=== PATIENT | male | born 1975 | race African-American/Black ===

== ENCOUNTER → 2017-09-09 | Outpatient (CLI) | payer MEDICARE, MEDICAID ==
[~2017-09-09] MED LIST: ALBU05 NEB; ALBU2.5V13 IH; ASPI-1159 PO; CLON0.1T PO; DILT180C3 PO; DOCU100C21 PO; FLUT1DIS INH; FOLI-43 PO; INSU10VI2 SQ; INSU3INS5 SQ; NEPVIT PO; NIFE-1 PO; PRED5TAB48 PO
== END | disposition home or self-care (01) ==
LOC: US 08:28
PROVIDERS: ATTEND Internal Medicine Nephrology
DX: M79.604 Pain in right leg (principal); M79.605 Pain in left leg; Z86.718 Personal history of other venous thrombosis and embolism
CPT/HCPCS: 93970

== ENCOUNTER 2017-10-17 20:54 | Inpatient (IN) | payer MEDICARE, MEDICAID ==
[~2017-10-17] VITALS: Ht 152.4 cm; Wt 65.8 kg
[2017-10-17 20:30] VITALS: BP 128/57
[2017-10-17 22:00] VITALS: BP 128/57
[2017-10-17] MEDS ORDERED: CLONIDINE 0.1MG TABLET PO PRN (23:56)
[2017-10-17] MEDS ORDERED: DOCUSATE SODIUM 100MG CAPSULE PO PRN (23:56)
[2017-10-18] VITALS: BP 107/73
[2017-10-18] MEDS ORDERED: DEXTROSE 50% WATER 50ML SYRINGE IV PRN
[2017-10-18] MEDS: ACETAMINOPHEN 325MG TABLET PO PRN ×2 (00:34→14:38)
[2017-10-18 01:01] LABS: EOSINOPHILS % 1.8 % (0.0-5.0); HEMATOCRIT. 26.8 % (42.0-52.0); HEMOGLOBIN. 8.4 g/dL (14.0-18.0); LYMPHOCYTES % 19.7 % (20.0-50.0); MEAN CORPUSCULAR HEMOGLOBIN 20.7 pg (28.0-32.0); MEAN CORPUSCULAR VOLUME 66.6 fL (80.0-94.0); MONOCYTES % 8.1 % (2.0-8.0); NEUTROPHILS % 69.4 % (40.0-76.0); PLATELET 481 x1000/uL (130-400); RED BLOOD CELL COUNT 4.03 mill/uL (4.7-6.1); RED CELL DISTRIBUTION WIDTH 20.5 % (11.6-14.6)
[2017-10-18] MEDS ORDERED: VANCOMYCIN 750 MG PREMIX 150 ML IV SCH (03:00)
[2017-10-18 04:00] VITALS: BP 125/74
[2017-10-18] MEDS: IPRATROPIUM/ALBUTEROL 0.5-3(2.5)MG/3ML NEB INH SCH ×4 (05:10→21:03)
[2017-10-18] MEDS: BLOOD SUGAR DIAGNOSTIC STRIP TEST SCH ×4 (06:39→21:20)
[2017-10-18] MEDS ORDERED: OMEP20CA10 PO (06:53)
[2017-10-18] MEDS ORDERED: WARF3TAB58 PO (06:53)
[2017-10-18] MEDS ORDERED: CLON0.1T PO (06:55)
[2017-10-18] MEDS ORDERED: INSNOV SUBCUT (06:55)
[2017-10-18] MEDS ORDERED: INSU300I SQ (06:57)
[2017-10-18] MEDS ORDERED: ASPI-1159 PO (06:57)
[2017-10-18] MEDS ORDERED: FLUT1DIS2 IH (06:58)
[2017-10-18] MEDS ORDERED: MEDICATION NOT ON FORMULARY EA (Fluticasone/Salmeterol (Advair Diskus) 1 PUFF) INH SCH (07:00)
[2017-10-18 07:35] LABS: HEMATOCRIT. 26.4 % (42.0-52.0); HEMOGLOBIN. 8.2 g/dL (14.0-18.0); MEAN CORPUSCULAR HEMOGLOBIN 20.5 pg (28.0-32.0); MEAN CORPUSCULAR VOLUME 65.7 fL (80.0-94.0); MEAN PLATELET VOLUME 6.7 fl (7.4-10.4); PLATELET 699 x1000/uL (130-400); RED BLOOD CELL COUNT 4.02 mill/uL (4.7-6.1); RED CELL DISTRIBUTION WIDTH 20.9 % (11.6-14.6)
[2017-10-18 07:44] LABS: CHLORIDE 95 mEq/L (98-107)
[2017-10-18] MEDS: INSULIN LISPRO 100 UNITS/ML SUBCUT SCH ×4 (07:50→21:00)
[2017-10-18 08:00] VITALS: BP 143/68
[2017-10-18] MEDS ORDERED: LEVOFLOXACIN 250MG PREMIX 50 ML IV SCH (08:45)
[2017-10-18] MEDS: DOCUSATE SODIUM 100MG CAPSULE PO SCH (08:50)
[2017-10-18] MEDS: OMEPRAZOLE 20MG CAPSULE EXTENDED RELEASE PO SCH (08:50)
[2017-10-18] MEDS: FOLIC ACID 1MG TABLET PO SCH (08:50)
[2017-10-18] MEDS: DILTIAZEM HCL 180MG CAPSULE CD 24HR PO SCH (08:51)
[2017-10-18] MEDS ORDERED: ALBUTEROL (0.083%) 2.5MG/3ML NEB HHN SCH (09:00)
[2017-10-18] MEDS: FOLIC ACID/VITAMIN B COMP W-C TABLET PO SCH (09:49)
[2017-10-18 10:51] LABS: PLATELET ESTIMATE INCREASED
[2017-10-18] MEDS: CHLORHEXIDINE GLUCONATE 4% EXTERNAL USE TOP SCH ×2 (11:00→17:00)
[2017-10-18] MEDS ORDERED: LEVOFLOXACIN 500MG PREMIX 100 ML IV SCH (11:00)
[2017-10-18 12:00] VITALS: BP 139/61
[2017-10-18] MEDS ORDERED: VANCOMYCIN 750 MG PREMIX 150 ML IV NR (12:00)
[2017-10-18] MEDS: CLONIDINE 0.1MG TABLET PO SCH ×2 (13:08→21:27)
[2017-10-18 16:00] VITALS: BP 141/74
[2017-10-18] MEDS ORDERED: HEPARIN SODIUM 1,000 UNIT/1ML VIAL IV NR (16:23)
[2017-10-18 20:00] VITALS: BP 131/76
[2017-10-18] MEDS ORDERED: EPOETIN ALFA 10000UNITS/ML VIAL SUBCUT SCH (21:00)
[2017-10-18] MEDS: BUDESONIDE 0.5MG/2ML NEB HHN SCH (21:03)
[2017-10-18] MEDS: MORPHINE SULFATE 4 MG/ML CPJ (NOT FOR IM USE) IV PRN (23:31)
[2017-10-19] VITALS: BP 146/82
[2017-10-19] MEDS: IPRATROPIUM/ALBUTEROL 0.5-3(2.5)MG/3ML NEB INH SCH ×4 (01:28→21:16)
[2017-10-19 01:40] LABS: PLATELET ESTIMATE INCREASED
[2017-10-19 04:00] VITALS: BP 132/81
[2017-10-19 05:55] LABS: HEMATOCRIT. 25.1 % (42.0-52.0); HEMOGLOBIN. 8.1 g/dL (14.0-18.0); MEAN CORPUSCULAR HEMOGLOBIN 20.8 pg (28.0-32.0); MEAN CORPUSCULAR VOLUME 64.9 fL (80.0-94.0); MEAN PLATELET VOLUME 6.7 fl (7.4-10.4); PLATELET 683 x1000/uL (130-400); RED BLOOD CELL COUNT 3.87 mill/uL (4.7-6.1); RED CELL DISTRIBUTION WIDTH 20.7 % (11.6-14.6)
[2017-10-19 06:26] LABS: PLATELET ESTIMATE INCREASED
[2017-10-19] MEDS: CLONIDINE 0.1MG TABLET PO SCH ×3 (06:32→21:59)
[2017-10-19] MEDS: OMEPRAZOLE 20MG CAPSULE EXTENDED RELEASE PO SCH (06:32)
[2017-10-19] MEDS: BLOOD SUGAR DIAGNOSTIC STRIP TEST SCH ×4 (06:37→20:48)
[2017-10-19 07:22] LABS: PHOSPHORUS 3.7 mg/dL (2.5-4.9)
[2017-10-19] MEDS: INSULIN LISPRO 100 UNITS/ML SUBCUT SCH ×4 (07:50→20:49)
[2017-10-19 08:00] VITALS: BP 142/66
[2017-10-19] MEDS: FOLIC ACID 1MG TABLET PO SCH (08:03)
[2017-10-19] MEDS: FOLIC ACID/VITAMIN B COMP W-C TABLET PO SCH (08:03)
[2017-10-19] MEDS: DOCUSATE SODIUM 100MG CAPSULE PO SCH (08:03)
[2017-10-19] MEDS: BUDESONIDE 0.5MG/2ML NEB HHN SCH ×2 (08:16→21:16)
[2017-10-19] MEDS: DILTIAZEM HCL 180MG CAPSULE CD 24HR PO SCH (08:52)
[2017-10-19] MEDS ORDERED: PROMETHAZINE/DEXTROMETHORPHAN 6.25-15MG/5ML BOTTLE 120ML PO PRN (09:00)
[2017-10-19] MEDS ORDERED: IPRATROPIUM/ALBUTEROL 0.5-3(2.5)MG/3ML NEB HHN PRN (11:45)
[2017-10-19 12:00] VITALS: BP 137/81
[2017-10-19] MEDS: CHLORHEXIDINE GLUCONATE 4% EXTERNAL USE TOP SCH ×2 (13:53→17:02)
[2017-10-19] MEDS: MORPHINE SULFATE 4 MG/ML CPJ (NOT FOR IM USE) IV PRN (14:38)
[2017-10-19 16:00] VITALS: BP 121/71
[2017-10-19 20:38] VITALS: BP 121/63
[2017-10-20] VITALS (9 sets, daily range): BP systolic 109–151; BP diastolic 56–81
[2017-10-20] MEDS: MORPHINE SULFATE 4 MG/ML CPJ (NOT FOR IM USE) IV PRN ×3 (02:35→22:47)
[2017-10-20] MEDS: IPRATROPIUM/ALBUTEROL 0.5-3(2.5)MG/3ML NEB INH SCH ×4 (02:36→20:16)
[2017-10-20] MEDS: OMEPRAZOLE 20MG CAPSULE EXTENDED RELEASE PO SCH (06:07)
[2017-10-20] MEDS: CLONIDINE 0.1MG TABLET PO SCH ×3 (06:08→22:23)
[2017-10-20 06:24] LABS: HEMATOCRIT. 23.7 % (42.0-52.0); HEMOGLOBIN. 7.4 g/dL (14.0-18.0); MEAN CORPUSCULAR HEMOGLOBIN 20.5 pg (28.0-32.0); MEAN CORPUSCULAR VOLUME 65.2 fL (80.0-94.0); MEAN PLATELET VOLUME 6.7 fl (7.4-10.4); PLATELET 640 x1000/uL (130-400); RED BLOOD CELL COUNT 3.64 mill/uL (4.7-6.1); RED CELL DISTRIBUTION WIDTH 20.6 % (11.6-14.6)
[2017-10-20] MEDS: BLOOD SUGAR DIAGNOSTIC STRIP TEST SCH ×4 (06:28→22:19)
[2017-10-20 06:58] LABS: PLATELET ESTIMATE INCREASED
[2017-10-20] MEDS: INSULIN LISPRO 100 UNITS/ML SUBCUT SCH ×4 (07:16→21:00)
[2017-10-20] MEDS: FOLIC ACID/VITAMIN B COMP W-C TABLET PO SCH (08:29)
[2017-10-20] MEDS: DOCUSATE SODIUM 100MG CAPSULE PO SCH (08:29)
[2017-10-20] MEDS: ZINC SULFATE 220 MG ( 50 ) CAPSULE PO SCH (08:30)
[2017-10-20] MEDS: CHLORHEXIDINE GLUCONATE 4% EXTERNAL USE TOP SCH ×2 (08:31→17:59)
[2017-10-20] MEDS: DILTIAZEM HCL 180MG CAPSULE CD 24HR PO SCH (08:38)
[2017-10-20] MEDS: ASCORBIC ACID 250 MG TABLET PO SCH ×2 (08:38→18:00)
[2017-10-20] MEDS: FOLIC ACID 1MG TABLET PO SCH (08:39)
[2017-10-20] MEDS: ONDANSETRON HCL 4MG/2ML VIAL IV PRN ×2 (09:41→22:37)
[2017-10-20] MEDS: BUDESONIDE 0.5MG/2ML NEB HHN SCH ×3 (10:00→20:16)
[2017-10-20] MEDS ORDERED: LEVOFLOXACIN 250MG PREMIX 50 ML IV SCH (11:00)
[2017-10-20] MEDS ORDERED: VANCOMYCIN 750 MG PREMIX 150 ML IV NR (22:00)
[2017-10-20] MEDS ORDERED: EPOETIN ALFA 10000UNITS/ML VIAL SUBCUT SCH (22:00)
[2017-10-21] VITALS: BP 105/59
[2017-10-21] MEDS: IPRATROPIUM/ALBUTEROL 0.5-3(2.5)MG/3ML NEB INH SCH (02:34)
[2017-10-21 04:00] VITALS: BP 123/74
[2017-10-21 06:15] LABS: HEMATOCRIT. 27.5 % (42.0-52.0); HEMOGLOBIN. 8.9 g/dL (14.0-18.0); MEAN CORPUSCULAR HEMOGLOBIN 21.7 pg (28.0-32.0); MEAN PLATELET VOLUME 6.7 fl (7.4-10.4); PLATELET 571 x1000/uL (130-400); RED CELL DISTRIBUTION WIDTH 20.9 % (11.6-14.6)
[2017-10-21] MEDS: CLONIDINE 0.1MG TABLET PO SCH (07:11)
[2017-10-21] MEDS: OMEPRAZOLE 20MG CAPSULE EXTENDED RELEASE PO SCH (07:11)
[2017-10-21] MEDS: BLOOD SUGAR DIAGNOSTIC STRIP TEST SCH ×2 (07:13→13:01)
[2017-10-21] MEDS: INSULIN LISPRO 100 UNITS/ML SUBCUT SCH ×2 (07:50→12:50)
[2017-10-21 08:00] VITALS: BP 119/70
[2017-10-21] MEDS: FOLIC ACID 1MG TABLET PO SCH (09:55)
[2017-10-21] MEDS: ASCORBIC ACID 250 MG TABLET PO SCH (09:55)
[2017-10-21] MEDS: FOLIC ACID/VITAMIN B COMP W-C TABLET PO SCH (09:55)
[2017-10-21] MEDS: ZINC SULFATE 220 MG ( 50 ) CAPSULE PO SCH (09:55)
[2017-10-21] MEDS: DILTIAZEM HCL 180MG CAPSULE CD 24HR PO SCH (09:56)
[2017-10-21] MEDS: DOCUSATE SODIUM 100MG CAPSULE PO SCH (09:57)
[2017-10-21] MEDS: CHLORHEXIDINE GLUCONATE 4% EXTERNAL USE TOP SCH (09:58)
[2017-10-21 10:05] LABS: PLATELET ESTIMATE INCREASED
[2017-10-21 11:45] VITALS: BP 119/70
[2017-10-21 12:00] VITALS: BP 133/79
== END 2017-10-21 13:50 | disposition home or self-care (01) | DRG 871 ==
LOC: 6EST 20:54
PROVIDERS: ADMIT Internal Medicine Nephrology; ATTEND Internal Medicine Nephrology
PROC: 5A1D70Z Performance of Urinary Filtration, Intermittent, Less than 6 Hours Per Day (ICD-10-PCS; principal; 2017-10-18)
PROC: 5A1D70Z Performance of Urinary Filtration, Intermittent, Less than 6 Hours Per Day (ICD-10-PCS; 2017-10-19)
PROC: 5A1D70Z Performance of Urinary Filtration, Intermittent, Less than 6 Hours Per Day (ICD-10-PCS; 2017-10-20)
PROC: 30233N1 Transfusion of Nonautologous Red Blood Cells into Peripheral Vein, Percutaneous Approach (ICD-10-PCS; 2017-10-20)
DX: A41.9 Sepsis, unspecified organism (principal); J96.00 Acute respiratory failure, unspecified whether with hypoxia or hypercapnia; J84.9 Interstitial pulmonary disease, unspecified; J90 Pleural effusion, not elsewhere classified; T86.11 Kidney transplant rejection; J18.9 Pneumonia, unspecified organism; N18.6 End stage renal disease; I13.11 Hypertensive heart and chronic kidney disease without heart failure, with stage 5 chronic kidney disease, or end stage renal disease; L02.411 Cutaneous abscess of right axilla; L03.90 Cellulitis, unspecified; Z94.0 Kidney transplant status; D64.9 Anemia, unspecified; E11.22 Type 2 diabetes mellitus with diabetic chronic kidney disease; G40.909 Epilepsy, unspecified, not intractable, without status epilepticus; E87.70 Fluid overload, unspecified; Z99.2 Dependence on renal dialysis; L73.2 Hidradenitis suppurativa; Z79.82 Long term (current) use of aspirin; Z79.4 Long term (current) use of insulin; Z79.899 Other long term (current) drug therapy
CPT/HCPCS: 36415; 71045; 80048; 80202; 82962; 83735; 84100; 84484; 85025; 86850; 86870; 86900; 86920; 87040; 87070; 87205; 93005; 93306; 93970; 94640; 97116; 97162; 97166; 97530; C1893; J0885; J1644; J1815; J1956; J2270; J2405; J3370; J7030; J7040; J7050; J7620; J7626; P9016

== ENCOUNTER 2017-11-01 15:38 | Inpatient (IN) | payer MEDICARE, MEDICAID ==
[~2017-11-01] VITALS: Ht 134.6 cm; Wt 61.2 kg
[~2017-11-01 15:38] MED LIST changes: -CLON0.1T PO; +FLUT1DIS2 IH; +INSNOV SUBCUT; +INSU300I SQ; +OMEP20CA10 PO
[2017-11-01] MEDS ORDERED: DOCUSATE SODIUM 100MG CAPSULE PO PRN (16:15)
[2017-11-01] MEDS ORDERED: ONDANSETRON HCL 4MG/2ML VIAL IV PRN (16:15)
[2017-11-01 17:00] VITALS: BP 119/63
[2017-11-01 20:00] VITALS: BP 99/54
[2017-11-01 20:07] LABS: BASOPHILS % 0.9 % (0.0-2.0); EOSINOPHILS % 0.5 % (0.0-5.0); HEMATOCRIT. 26.3 % (42.0-52.0); HEMOGLOBIN. 8.6 g/dL (14.0-18.0); LYMPHOCYTES % 15.4 % (20.0-50.0); MEAN CORPUSCULAR HEMOGLOBIN 21.2 pg (28.0-32.0); MEAN PLATELET VOLUME 6.6 fl (7.4-10.4); MONOCYTES % 9.9 % (2.0-8.0); NEUTROPHILS % 73.3 % (40.0-76.0); PLATELET 566 x1000/uL (130-400); RED BLOOD CELL COUNT 4.05 mill/uL (4.7-6.1); RED CELL DISTRIBUTION WIDTH 23.7 % (11.6-14.6)
[2017-11-01 20:11] LABS: INR 1.4; PROTHROMBIN TIME 14.9 sec (9.4-11.6)
[2017-11-01] MEDS ORDERED: DEXTROSE 50% WATER 50ML SYRINGE IV PRN (20:15)
[2017-11-01] MEDS: ACETAMINOPHEN 325MG TABLET PO PRN (20:19)
[2017-11-01 20:20] LABS: PHOSPHORUS 1.5 mg/dL (2.5-4.9); PLATELET ESTIMATE INCREASED
[2017-11-01] MEDS: BLOOD SUGAR DIAGNOSTIC STRIP TEST SCH (20:32)
[2017-11-01 20:52] VITALS: BP 99/54
[2017-11-01] MEDS: INSULIN LISPRO 100 UNITS/ML SUBCUT SCH (21:29)
[2017-11-01] MEDS: LEVOFLOXACIN 250MG PREMIX 50 ML IV SCH (22:43)
[2017-11-02] VITALS (7 sets, daily range): BP systolic 122–149; BP diastolic 55–81
[2017-11-02] MEDS ORDERED: FLUT1DIS2 IH (00:06)
[2017-11-02] MEDS ORDERED: ASCO-339 PO (00:07)
[2017-11-02] MEDS ORDERED: ALBU2.5V13 IH (00:11)
[2017-11-02] MEDS ORDERED: FOLI0.8T23 PO (00:11)
[2017-11-02] MEDS ORDERED: OMEP20CA10 PO (00:11)
[2017-11-02] MEDS ORDERED: ZINC50TA62 PO (00:11)
[2017-11-02] MEDS ORDERED: FOLI-43 PO (00:11)
[2017-11-02] MEDS ORDERED: DILT180C3 PO (00:11)
[2017-11-02] MEDS ORDERED: NIFE-1 PO (00:11)
[2017-11-02] MEDS ORDERED: INSU300I SQ (00:12)
[2017-11-02] MEDS ORDERED: ASPI-1079 PO (00:12)
[2017-11-02 02:20] LABS: HEMATOCRIT 26.3 % (42.0-52.0); HEMOGLOBIN 8.2 g/dL (14.0-18.0)
[2017-11-02] MEDS: MORPHINE SULFATE 4 MG/ML CPJ (NOT FOR IM USE) IV PRN (03:01)
[2017-11-02] MEDS: BLOOD SUGAR DIAGNOSTIC STRIP TEST SCH ×5 (06:39→21:00)
[2017-11-02] MEDS: INSULIN LISPRO 100 UNITS/ML SUBCUT SCH ×5 (07:50→21:00)
[2017-11-02] MEDS: FOLIC ACID/VITAMIN B COMP W-C TABLET PO SCH (08:08)
[2017-11-02] MEDS: CALCIUM ACETATE 667MG CAPSULE PO SCH ×4 (08:08→17:59)
[2017-11-02] MEDS: PANTOPRAZOLE SODIUM 40 MG/VIAL IV SCH (08:09)
[2017-11-02] MEDS: FOLIC ACID 1MG TABLET PO SCH (08:09)
[2017-11-02] MEDS: DILTIAZEM HCL 180MG CAPSULE CD 24HR PO SCH (08:09)
[2017-11-02] MEDS ORDERED: NIFEDIPINE XL 30MG TAB PO SCH (09:00)
[2017-11-02] MEDS ORDERED: LACTULOSE 20G/30ML UDC PO SCH (09:15)
[2017-11-02 10:22] LABS: HEMATOCRIT. 27.5 % (42.0-52.0); HEMOGLOBIN. 8.6 g/dL (14.0-18.0); INR 1.4; MEAN CORPUSCULAR HEMOGLOBIN 20.5 pg (28.0-32.0); MEAN CORPUSCULAR VOLUME 65.2 fL (80.0-94.0); MEAN PLATELET VOLUME 6.7 fl (7.4-10.4); PLATELET 531 x1000/uL (130-400); PROTHROMBIN TIME 15.1 sec (9.4-11.6); RED BLOOD CELL COUNT 4.22 mill/uL (4.7-6.1); RED CELL DISTRIBUTION WIDTH 23.5 % (11.6-14.6)
[2017-11-02 10:23] LABS: CHLORIDE 92 mEq/L (98-107)
[2017-11-02 10:36] LABS: LDL CHOLESTEROL 73 mg/dL (5-100)
[2017-11-02 10:37] LABS: HDL CHOLESTEROL 73 mg/dL (40-59)
[2017-11-02 15:49] LABS: HEMATOCRIT 27.5 % (42.0-52.0); HEMOGLOBIN 8.6 g/dL (14.0-18.0)
[2017-11-02 17:09] LABS: PLATELET ESTIMATE INCREASED
[2017-11-02 22:01] LABS: HEMATOCRIT 25.8 % (42.0-52.0); HEMOGLOBIN 8.4 g/dL (14.0-18.0)
[2017-11-02] MEDS: LEVOFLOXACIN 250MG PREMIX 50 ML IV SCH (22:24)
[2017-11-03] VITALS: BP 105/51
[2017-11-03 04:00] VITALS: BP 112/50
[2017-11-03] MEDS: INSULIN LISPRO 100 UNITS/ML SUBCUT SCH ×4 (06:20→22:11)
[2017-11-03] MEDS: BLOOD SUGAR DIAGNOSTIC STRIP TEST SCH ×4 (06:20→20:53)
[2017-11-03 07:40] LABS: HEMATOCRIT. 24.4 % (42.0-52.0); HEMOGLOBIN. 7.7 g/dL (14.0-18.0); MEAN CORPUSCULAR HEMOGLOBIN 20.6 pg (28.0-32.0); MEAN CORPUSCULAR VOLUME 64.9 fL (80.0-94.0); MEAN PLATELET VOLUME 6.5 fl (7.4-10.4); PLATELET 534 x1000/uL (130-400); RED BLOOD CELL COUNT 3.76 mill/uL (4.7-6.1); RED CELL DISTRIBUTION WIDTH 22.9 % (11.6-14.6)
[2017-11-03 08:00] VITALS: BP 120/65
[2017-11-03] MEDS: DILTIAZEM HCL 180MG CAPSULE CD 24HR PO SCH (09:00)
[2017-11-03] MEDS: FOLIC ACID 1MG TABLET PO SCH (10:39)
[2017-11-03] MEDS: CALCIUM ACETATE 667MG CAPSULE PO SCH ×3 (10:39→19:06)
[2017-11-03] MEDS: PANTOPRAZOLE SODIUM 40 MG/VIAL IV SCH (10:39)
[2017-11-03] MEDS: FOLIC ACID/VITAMIN B COMP W-C TABLET PO SCH (10:39)
[2017-11-03] MEDS ORDERED: DIATR MEGLU/DIATRIZOATE SOLN 30ML PO SCH (11:30)
[2017-11-03 11:52] LABS: BG CARBOXYHEMOGLOBIN 0.7 % (0.5-1.5); BG DEOXYHEMOGLOBIN 8.9 % (0.0-5.0); BG HCO3 ACT 30.2 mmol/L (22.0-26.0); BG METHEMOGLOBIN 0.2 % (0.0-1.5); BG OXYHEMOGLOBIN 90.2 % (94.0-97.0); BG PCO2 42.3 mmHg (35.0-45.0); BG PH 7.472 (7.350-7.450); BG PO2 58.8 mmHg (75.0-100.0); BG SAMPLE SITE RIGHT RADIAL; BG VENT MODE ROOM AIR
[2017-11-03 12:00] VITALS: BP 136/74
[2017-11-03] MEDS ORDERED: LIDOCAINE HCL/PF 1% 2ML VIAL ONE (13:14)
[2017-11-03 16:00] VITALS: BP 130/58
[2017-11-03 16:15] LABS: PLATELET ESTIMATE INCREASED
[2017-11-03 16:23] LABS: HEMATOCRIT 27.3 % (42.0-52.0); HEMOGLOBIN 8.4 g/dL (14.0-18.0)
[2017-11-03] MEDS ORDERED: BISACODYL 5MG TABLET PO NR (16:45)
[2017-11-03] MEDS: VANCOMYCIN 1250MG in DEXTROSE 5% WATER 250ML IV NR ×2 (17:00→22:09)
[2017-11-03] MEDS: ACETAMINOPHEN 325MG TABLET PO PRN (18:10)
[2017-11-03] MEDS: CHLORHEXIDINE GLUCONATE 4% EXTERNAL USE TOP SCH (19:06)
[2017-11-03] MEDS ORDERED: *TOBRAMYCIN PER PHARMACY XX SCH (19:30)
[2017-11-03] MEDS ORDERED: IOHEXOL-300 100 ML BOTTLE ONE (19:41)
[2017-11-03 20:00] VITALS: BP 107/63
[2017-11-03] MEDS ORDERED: TOBRAMYCIN SULFATE IV NR (22:00)
[2017-11-03] MEDS ORDERED: SODIUM CHLORIDE 0.9% IV NR (22:00)
[2017-11-03] MEDS: EPOETIN ALFA 10000UNITS/ML VIAL SUBCUT SCH (22:09)
[2017-11-04] VITALS: BP 150/67
[2017-11-04] MEDS: MORPHINE SULFATE 4 MG/ML CPJ (NOT FOR IM USE) IV PRN (03:04)
[2017-11-04 04:00] VITALS: BP 125/79
[2017-11-04] MEDS: BLOOD SUGAR DIAGNOSTIC STRIP TEST SCH ×4 (05:53→21:02)
[2017-11-04] MEDS: CHLORHEXIDINE GLUCONATE 4% EXTERNAL USE TOP SCH ×2 (05:53→18:54)
[2017-11-04] MEDS: INSULIN LISPRO 100 UNITS/ML SUBCUT SCH ×4 (05:57→21:54)
[2017-11-04 07:08] LABS: BASOPHILS % 0.9 % (0.0-2.0); EOSINOPHILS % 1.3 % (0.0-5.0); HEMATOCRIT. 28.6 % (42.0-52.0); HEMOGLOBIN. 8.9 g/dL (14.0-18.0); LYMPHOCYTES % 16.4 % (20.0-50.0); MEAN CORPUSCULAR HEMOGLOBIN 20.5 pg (28.0-32.0); MEAN PLATELET VOLUME 6.7 fl (7.4-10.4); MONOCYTES % 11.2 % (2.0-8.0); NEUTROPHILS % 70.2 % (40.0-76.0); PLATELET 537 x1000/uL (130-400); RED BLOOD CELL COUNT 4.33 mill/uL (4.7-6.1); RED CELL DISTRIBUTION WIDTH 23.7 % (11.6-14.6)
[2017-11-04 08:00] VITALS: BP 145/80
[2017-11-04] MEDS: FOLIC ACID/VITAMIN B COMP W-C TABLET PO SCH (09:37)
[2017-11-04] MEDS: CALCIUM ACETATE 667MG CAPSULE PO SCH ×3 (09:37→19:30)
[2017-11-04] MEDS: LEVOFLOXACIN 250MG PREMIX 50 ML IV SCH (09:37)
[2017-11-04] MEDS: PANTOPRAZOLE SODIUM 40 MG/VIAL IV SCH (09:37)
[2017-11-04] MEDS: FOLIC ACID 1MG TABLET PO SCH (09:37)
[2017-11-04] MEDS: DILTIAZEM HCL 180MG CAPSULE CD 24HR PO SCH (09:39)
[2017-11-04 12:00] VITALS: BP 145/74
[2017-11-04] MEDS: METHYLPREDNISOLONE SOD SUCC 125 MG/2 ML VIAL IV SCH ×3 (12:41→23:30)
[2017-11-04 16:00] VITALS: BP 155/86
[2017-11-04 20:00] VITALS: BP 155/80
[2017-11-04] MEDS ORDERED: INSULIN GLARGINE UD 100 UNITS/ML SYR SUBCUT SCH (22:00)
[2017-11-05] VITALS: BP 157/76
[2017-11-05 04:00] VITALS: BP 149/90
[2017-11-05] MEDS: CHLORHEXIDINE GLUCONATE 4% EXTERNAL USE TOP SCH ×2 (05:56→18:56)
[2017-11-05] MEDS: BLOOD SUGAR DIAGNOSTIC STRIP TEST SCH ×4 (05:56→21:44)
[2017-11-05] MEDS: METHYLPREDNISOLONE SOD SUCC 125 MG/2 ML VIAL IV SCH ×3 (05:56→18:57)
[2017-11-05 08:00] VITALS: BP 155/77
[2017-11-05] MEDS: INSULIN LISPRO 100 UNITS/ML SUBCUT SCH ×4 (08:58→21:42)
[2017-11-05] MEDS: CALCIUM ACETATE 667MG CAPSULE PO SCH ×3 (09:00→18:57)
[2017-11-05] MEDS: FOLIC ACID 1MG TABLET PO SCH (09:00)
[2017-11-05] MEDS: PANTOPRAZOLE SODIUM 40 MG/VIAL IV SCH (09:00)
[2017-11-05] MEDS: FOLIC ACID/VITAMIN B COMP W-C TABLET PO SCH (09:00)
[2017-11-05] MEDS: DILTIAZEM HCL 180MG CAPSULE CD 24HR PO SCH (09:00)
[2017-11-05] MEDS: MORPHINE SULFATE 4 MG/ML CPJ (NOT FOR IM USE) IV PRN (10:10)
[2017-11-05 12:00] VITALS: BP 156/77
[2017-11-05 12:53] LABS: HEMATOCRIT. 28.7 % (42.0-52.0); HEMOGLOBIN. 9.2 g/dL (14.0-18.0); MEAN CORPUSCULAR HEMOGLOBIN 21.1 pg (28.0-32.0); MEAN CORPUSCULAR VOLUME 65.8 fL (80.0-94.0); MEAN PLATELET VOLUME 6.4 fl (7.4-10.4); PLATELET 575 x1000/uL (130-400); RED BLOOD CELL COUNT 4.36 mill/uL (4.7-6.1); RED CELL DISTRIBUTION WIDTH 23.9 % (11.6-14.6)
[2017-11-05 13:23] LABS: PLATELET ESTIMATE INCREASED
[2017-11-05 13:32] LABS: TOBRAMYCIN RANDOM 2.8 ucg/mL
[2017-11-05 16:00] VITALS: BP 172/86
[2017-11-05] MEDS ORDERED: VANCOMYCIN 1 G PREMIX 200 ML IV SCH (18:00)
[2017-11-05 20:00] VITALS: BP 152/76
[2017-11-05] MEDS: EPOETIN ALFA 10000UNITS/ML VIAL SUBCUT SCH (21:43)
[2017-11-05] MEDS ORDERED: INSULIN GLARGINE UD 100 UNITS/ML SYR SUBCUT SCH (22:00)
[2017-11-06] VITALS (7 sets, daily range): BP systolic 124–151; BP diastolic 55–92
[2017-11-06] MEDS: METHYLPREDNISOLONE SOD SUCC 125 MG/2 ML VIAL IV SCH ×4 (04:18→17:05)
[2017-11-06] MEDS: CHLORHEXIDINE GLUCONATE 4% EXTERNAL USE TOP SCH ×2 (05:35→17:20)
[2017-11-06] MEDS: BLOOD SUGAR DIAGNOSTIC STRIP TEST SCH ×3 (05:50→17:20)
[2017-11-06] MEDS ORDERED: NIFEDIPINE XL 30MG TAB PO SCH (09:00)
[2017-11-06 09:12] LABS: HEMOGLOBIN. 9.6 g/dL (14.0-18.0); MEAN CORPUSCULAR HEMOGLOBIN 20.8 pg (28.0-32.0); MEAN CORPUSCULAR VOLUME 64.9 fL (80.0-94.0); MEAN PLATELET VOLUME 8.3 fl (7.4-10.4); PLATELET 547 x1000/uL (130-400); RED BLOOD CELL COUNT 4.62 mill/uL (4.7-6.1); RED CELL DISTRIBUTION WIDTH 23.9 % (11.6-14.6)
[2017-11-06 09:34] LABS: T4 FREE 0.95 ng/dL (0.76-1.46)
[2017-11-06 09:36] LABS: PREALBUMIN 12.3 mg/dL (20.0-40.0)
[2017-11-06] MEDS: INSULIN LISPRO 100 UNITS/ML SUBCUT SCH ×4 (09:38→18:05)
[2017-11-06] MEDS: FOLIC ACID 1MG TABLET PO SCH (09:40)
[2017-11-06] MEDS: PANTOPRAZOLE SODIUM 40 MG/VIAL IV SCH (09:40)
[2017-11-06] MEDS: FOLIC ACID/VITAMIN B COMP W-C TABLET PO SCH (09:40)
[2017-11-06] MEDS: LEVOFLOXACIN 250MG PREMIX 50 ML IV SCH (09:40)
[2017-11-06] MEDS: CALCIUM ACETATE 667MG CAPSULE PO SCH ×3 (09:40→17:55)
[2017-11-06] MEDS ORDERED: INSULIN LISPRO 100 UNITS/ML SUBCUT SCH (12:40)
[2017-11-06] MEDS: INSULIN LISPRO (LOW DOSE) 100 UNITS/ML SUBCUT SCH ×2 (13:50→18:06)
[2017-11-06 14:10] LABS: NUCLEATED RED BLOOD CELLS 2 /100 WBC
[2017-11-06 14:11] LABS: PLATELET ESTIMATE INCREASED
== END 2017-11-06 21:55 | disposition short-term general hospital (02) | DRG 698 ==
LOC: 6EST 15:38 → 7WST 11-02 12:20
PROVIDERS: ADMIT Internal Medicine Nephrology; ATTEND Internal Medicine Nephrology
PROC: 5A1D70Z Performance of Urinary Filtration, Intermittent, Less than 6 Hours Per Day (ICD-10-PCS; principal; 2017-11-03)
PROC: 5A1D70Z Performance of Urinary Filtration, Intermittent, Less than 6 Hours Per Day (ICD-10-PCS; 2017-11-05)
DX: T86.11 Kidney transplant rejection (principal); J18.9 Pneumonia, unspecified organism; E46 Unspecified protein-calorie malnutrition; E11.22 Type 2 diabetes mellitus with diabetic chronic kidney disease; J90 Pleural effusion, not elsewhere classified; N18.6 End stage renal disease; L02.419 Cutaneous abscess of limb, unspecified; E87.1 Hypo-osmolality and hyponatremia; I13.11 Hypertensive heart and chronic kidney disease without heart failure, with stage 5 chronic kidney disease, or end stage renal disease; E11.40 Type 2 diabetes mellitus with diabetic neuropathy, unspecified; E66.9 Obesity, unspecified; E83.52 Hypercalcemia; G40.909 Epilepsy, unspecified, not intractable, without status epilepticus; D72.829 Elevated white blood cell count, unspecified; K59.00 Constipation, unspecified; D63.1 Anemia in chronic kidney disease; L73.2 Hidradenitis suppurativa; K80.20 Calculus of gallbladder without cholecystitis without obstruction; R59.0 Localized enlarged lymph nodes; Z99.2 Dependence on renal dialysis; Z94.0 Kidney transplant status; Z83.3 Family history of diabetes mellitus; Z82.49 Family history of ischemic heart disease and other diseases of the circulatory system; Z79.4 Long term (current) use of insulin; Z90.5 Acquired absence of kidney; Z88.8 Allergy status to other drugs, medicaments and biological substances; Z68.33 Body mass index [BMI] 33.0-33.9, adult; G47.30 Sleep apnea, unspecified; R09.02 Hypoxemia; J45.909 Unspecified asthma, uncomplicated
CPT/HCPCS: 36415; 36600; 71045; 74176; 74177; 80048; 80053; 80061; 80200; 80202; 82330; 82375; 82805; 82962; 83036; 83540; 83550; 83690; 83735; 83970; 84100; 84134; 84439; 84443; 85014; 85018; 85025; 85610; 85651; 86141; 87040; 93005; 93970; C1893; C9113; J0885; J1815; J1956; J2270; J2405; J2930; J3260; J3370; J3490; J7030; J7040; J7050; J7060; Q9967

== ENCOUNTER 2018-04-22 07:46 | Emergency (ER) | payer MEDICARE, MEDICAID ==
[~2018-04-22] VITALS: Ht 167.6 cm; Wt 65.0 kg
[~2018-04-22 07:46] MED LIST changes: -ALBU05 NEB; +ASCO-339 PO; +ASPI-1079 PO; -ASPI-1159 PO; -DOCU100C21 PO; -FLUT1DIS INH; +FOLI0.8T23 PO; -INSNOV SUBCUT; -INSU10VI2 SQ; -INSU3INS5 SQ; -NEPVIT PO; -PRED5TAB48 PO; +ZINC50TA62 PO
[2018-04-22] MEDS ORDERED: ONDANSETRON HCL 4MG/2ML INJ IV STA (08:10)
[2018-04-22] MEDS ORDERED: MORPHINE SULFATE 4 MG/ML CPJ (NOT FOR IM USE) IV STA (08:10)
[2018-04-22 09:35] LABS: HEMATOCRIT. 40.1 % (42.0-52.0); HEMOGLOBIN. 13.1 g/dL (14.0-18.0); MEAN CORPUSCULAR HEMOGLOBIN 25.3 pg (28.0-32.0); MEAN CORPUSCULAR VOLUME 77.4 fL (80.0-94.0); MEAN PLATELET VOLUME 7.4 fl (7.4-10.4); PLATELET 174 x1000/uL (130-400); RED BLOOD CELL COUNT 5.17 mill/uL (4.7-6.1); RED CELL DISTRIBUTION WIDTH 21.8 % (11.6-14.6)
[2018-04-22 09:36] LABS: CHLORIDE 96 mEq/L (98-107)
[2018-04-22 10:03] LABS: PLATELET ESTIMATE NORMAL
[2018-04-22 12:00] VITALS: BP 115/64
== END 2018-04-22 12:12 | disposition home or self-care (01) ==
LOC: ER 07:46
DX: M79.604 Pain in right leg (principal); E11.22 Type 2 diabetes mellitus with diabetic chronic kidney disease; I12.0 Hypertensive chronic kidney disease with stage 5 chronic kidney disease or end stage renal disease; N18.6 End stage renal disease; J45.909 Unspecified asthma, uncomplicated; R00.0 Tachycardia, unspecified; Z99.2 Dependence on renal dialysis; Z88.8 Allergy status to other drugs, medicaments and biological substances; Z79.82 Long term (current) use of aspirin; Z90.89 Acquired absence of other organs
CPT/HCPCS: 36415; 71045; 80053; 83880; 84484; 85025; 93005; 93971; 96374; 96375; 99285; J2270; J2405

== ENCOUNTER 2019-09-26 14:16 | Emergency (ER) | payer MEDICARE, MEDICAID ==
[~2019-09-26] VITALS: Ht 127 cm; Wt 60.0 kg
[~2019-09-26 14:16] MED LIST changes: -DILT180C3 PO; +DILT180C87 PO; -NIFE-1 PO; +NIFE-53 PO; -OMEP20CA10 PO; +OMEP20CA14 PO
[2019-09-26 16:08] VITALS: BP 168/89
== END 2019-09-26 16:10 | disposition home or self-care (01) ==
LOC: ER 14:16
DX: L02.412 Cutaneous abscess of left axilla (principal); L02.31 Cutaneous abscess of buttock; F79 Unspecified intellectual disabilities; E11.22 Type 2 diabetes mellitus with diabetic chronic kidney disease; I12.0 Hypertensive chronic kidney disease with stage 5 chronic kidney disease or end stage renal disease; N18.6 End stage renal disease; Z94.0 Kidney transplant status; J45.909 Unspecified asthma, uncomplicated; Z91.048 Other nonmedicinal substance allergy status; Z79.4 Long term (current) use of insulin; Z79.82 Long term (current) use of aspirin
CPT/HCPCS: 99283